=== PATIENT | female | born 1965 | race African-American/Black ===

== ENCOUNTER 2023-08-07 10:31 | Emergency (ER) | payer MEDICARE, MEDICAID ==
[~2023-08-07] VITALS: Ht 167.6 cm; Wt 95.5 kg
[~2023-08-07 10:31] MED LIST: PREDNISONE20 MG PO
[2023-08-07 10:40] VITALS: BP 145/99; PULSE 95; TEMP 98.1
== END 2023-08-07 12:30 | disposition home or self-care (01) ==
LOC: COL.ER 10:31
DX: J06.9 Acute upper respiratory infection, unspecified (principal); R20.2 Paresthesia of skin; F17.210 Nicotine dependence, cigarettes, uncomplicated; Z91.040 Latex allergy status

== ENCOUNTER → 2024-01-29 | Outpatient (CLI) | payer MEDICARE, MEDICAID ==
[~2024-01-29] MED LIST changes: +Gadoterate 20 ML VIAL IV ONE
== END ==
LOC: COL.RAD 09:51
DX: M47.816 Spondylosis without myelopathy or radiculopathy, lumbar region (principal); M48.061 Spinal stenosis, lumbar region without neurogenic claudication; M43.26 Fusion of spine, lumbar region; M43.27 Fusion of spine, lumbosacral region
CPT/HCPCS: A9575

== ENCOUNTER 2024-01-30 15:22 | Emergency (ER) | payer MEDICARE, MEDICAID ==
[~2024-01-30] VITALS: Ht 167.6 cm; Wt 104.1 kg
[~2024-01-30 15:22] MED LIST changes: -Gadoterate 20 ML VIAL IV ONE
[2024-01-30 15:25] VITALS: TEMP 98.3
[2024-01-30 17:38] VITALS: BP 149/88; PULSE 68
== END 2024-01-30 17:38 | disposition home or self-care (01) ==
LOC: COL.ER 15:22
DX: S90.01XA Contusion of right ankle, initial encounter (principal); F17.210 Nicotine dependence, cigarettes, uncomplicated; Z91.040 Latex allergy status; W20.8XXA Other cause of strike by thrown, projected or falling object, initial encounter

== ENCOUNTER 2024-02-21 13:35 | Emergency (ER) | payer MEDICARE, MEDICAID ==
[~2024-02-21] VITALS: Ht 167.6 cm; Wt 101.4 kg
[2024-02-21 13:44] VITALS: TEMP 98.4
[2024-02-21] MEDS ORDERED: Ketorolac 30 MG/ML VIAL IM ONE (14:30)
[2024-02-21 15:20] VITALS: BP 185/90; PULSE 69
[2024-02-21] MEDS ORDERED: FLEXERIL 1010 MG/TAB PO (15:27)
== END 2024-02-21 15:25 | disposition home or self-care (01) ==
LOC: COL.ER 13:35
DX: M54.6 Pain in thoracic spine (principal); F17.210 Nicotine dependence, cigarettes, uncomplicated; Z98.890 Other specified postprocedural states; Z91.040 Latex allergy status
CPT/HCPCS: J1885; J2360